=== PATIENT | male | born 1955 | race Caucasian/White ===

== ENCOUNTER 2019-10-23 10:23 | Inpatient (IN) | payer MEDICARE ==
[2019-10-23] VITALS (22 sets, daily range): BP systolic 90–161; BP diastolic 51–125
[~2019-10-23] VITALS: Ht 172.7 cm; Wt 94.3 kg
[~2019-10-23 10:23] MED LIST: AMARYL2 MG PO; ASPIRIN325 MG PO; ASPIRIN81 M1 PO; GLIMEPIRIDE1 MG PO; METFORMIN HCL1000 MG PO; METFORMIN HCL500 MG PO; METOPROLOL SR25 MG PO; PRAVASTATIN SOD40 MG PO
[2019-10-23 11:33] LABS: HEMATOCRIT 46.1 % (42.0-52.0); MEAN CELL VOLUME 89.9 fl (80.0-94.0); MEAN CORPUSCULAR HGB 28.5 pg (27.0-31.0); MEAN CORPUSCULAR HGB CONC 31.7 g/dl (33.0-37.0); MEAN PLATELET VOLUME 10.7 fl (9.6-12.3); PLATELET COUNT AUTOMATED 463 10*3/uL (130-400); RED BLOOD COUNT 5.13 10*6/uL (4.50-5.90); RED CELL DISTRI WIDTH 15.6 % (0-14.5)
--- NOTE | 2019-10-23 11:38 | NUR ---
A 64, admitted to , under the services of IRVIN Canela DO with a diagnosis of .+ COVID Chief complaint is SOB. Patient arrived via stretcher from ER. Monitor applied. Initial assessment completed. Vital signs taken and recorded. IRVIN CANELA DO notified of admission to the unit. Orders received. See assessment for past medical history, medications and allergies. Patient and/or family oriented to unit. [facility] visitation policy reviewed. Clothing/patient valuable form completed. RALEIGH WALTERS
[2019-10-23 11:41] LABS: ACT PARTIAL THROMBO TIME 25.7 SECONDS (20.0-32.1)
[2019-10-23 11:47] LABS: ALBUMIN 2.6 gm/dl (3.1-4.5); ALKALINE PHOSPHATASE 156 U/L (45-117); BUN 91 mg/dl (7-24); CHLORIDE 105 mmol/L (98-107); LIPASE 294 U/L (73-393); POTASSIUM 4.8 mmol/L (3.5-5.1); SGOT/AST 66 IU/L (3-35); SGPT/ALT 62 U/L (12-78); SODIUM 137 mmol/L (136-145); TOTAL PROTEIN 8.5 gm/dL (6.4-8.2)
--- NOTE | 2019-10-23 11:50 | NUR ---
PT BROUGHT TO 508 EMERGENTLY FROM ER, INTUBATED, UNABLE TO ASK ANY QUESTIONS RETO [facility]
[2019-10-23 11:55] LABS: TROPONIN I < 0.015 ng/ml (<0.045)
[2019-10-23 12:00] LABS: LDH 447 U/L (87-241)
[2019-10-23 12:04] LABS: PLATELET SUFFICIENCY HIGH (NORMAL); TOTAL CELLS COUNTED 100 #CELLS
--- NOTE | 2019-10-23 12:08 | NUR ---
PATIENT RECEIVED FROM ER AND ANRSTHESIA, NURSES & RESP THERAPY READY..PT AAOX3 AND AGREED TO INTUBATION AND LINES.. PER PT HE HAS BEEN SICK FOR AT LEAST 2 WEEKS..INTUBATED BY ANESTHESIOLOGY AFTER 10 ROCURIUM, 3 SYRINGES OF KETAMINE & 8cc SUCC VIA LEFT ANTECUBITAL WITH GOOD BLOOD RETURN..INTUBATED #8 @ 24 LIP WITHOUT DIFFICULTY..VENT CURRENTLY AT AC 24, TV 425, 100% & +16...#16 CONWAY PLACED WITHOUT DIFFICULTY BUT NO URINE OUTPUT OBTAINED.. TAPED TO THIGH..#18 OGT PLACED WITHOUT DIFFICULTY & PLACEMENT CHECKED WITH AIR BOLUS..90 ROCC GIVEN POST INTUBATION PER ANESTHESIA..DR MEDINA WAS AWARE OF PATIENT ARRIVAL TO FLOOR..
--- NOTE | 2019-10-23 12:36 | NUR ---
PATIENT BLOOD PRESSURE CRASHING - PER ANESTHESIA STAT IV NSS X2L / LADONNA, LEVOPHED, EPHEDRINE PULLED AND GIVEN TO ANESTHESIA...STAFF AT BEDSIDE
--- NOTE | 2019-10-23 13:00 | NUR ---
A ART LINE was inserted into right radial artery under sterile procedure by Kash Goznalez CRNA per policy. Education was completed by staff to include central line blood stream infection prevention. Julissa Abbott Rn
--- NOTE | 2019-10-23 13:30 | NUR ---
A MULTILUMEN CATHETER was inserted into RIJ under sterile procedure by Kash Gonzalez per policy. A stop sign was placed outside the door prior to the line insertion. Education was completed by staff to include central line blood stream infection prevention. Julissa Abbott Rn
[2019-10-23 14:59] LABS: ABG BASE EXCESS -11.9 mmol/L (-2.0-2.0); ARTERIAL BLOOD GAS PH 7.079 (7.35-7.45)
--- NOTE | 2019-10-23 15:20 | NUR ---
PT. hypotensive with BP84/59. PROPOFOL drip stopped. Dr Sim notified of condition changes. Orders rec'd. IV fluids given as ordered. Epinephrine gtt started along with vasopressin. PT continues to not response to vasopressors. [id number] Titrating drips to maintain map >70. Family notified of patient critical condition. Julissa Abbott Rn
--- NOTE | 2019-10-23 16:00 | NUR ---
VT CHANGED TO 550, FIO2 60%, PEEP +9, A/C [address] MEDINA.
--- NOTE | 2019-10-23 16:37 | NUR ---
DR. PEDERSEN'S AND DR. OLEA'S ANSWERING SERVICE NOTIFIED OF CONSULT
[2019-10-23 17:10] LABS: ABG BASE EXCESS -11.7 mmol/L (-2.0-2.0)
[2019-10-23 17:12] LABS: ARTERIAL BLOOD GAS PH 7.137 (7.35-7.45)
--- NOTE | 2019-10-23 17:15 | NUR ---
[phone] here with patient. Wallet and yellow wedding band given to . BP 107-122 systolic. Vasopressors remain on. Julissa AbbottRn
--- NOTE | 2019-10-23 17:30 | NUR ---
STAT 2 AMPS BICARB GIVEN AFTER SPEAKING WITH DR MEDINA ABOUT ABG RESULTS - AT BEDSIDE
[2019-10-23 17:32] LABS: ALBUMIN 2.2 gm/dl (3.1-4.5); CREATININE 3.24 mg/dL (0.70-1.30); PHOSPHOROUS 8.1 mg/dL (2.5-4.9)
[2019-10-23 17:33] LABS: ALBUMIN 2.2 gm/dl (3.1-4.5); CREATININE 3.16 mg/dL (0.70-1.30)
[2019-10-23 19:22] LABS: HEMATOCRIT 40.5 % (42.0-52.0); MEAN CORPUSCULAR HGB 27.7 pg (27.0-31.0); MEAN CORPUSCULAR HGB CONC 28.9 g/dl (33.0-37.0); MEAN PLATELET VOLUME 10.4 fl (9.6-12.3); NUCLEATED RED BLOOD CELL 0.1 10*3/uL (0.0-0.0); PLATELET COUNT AUTOMATED 499 10*3/uL (130-400); RED BLOOD COUNT 4.22 10*6/uL (4.50-5.90); RED CELL DISTRI WIDTH 16.4 % (0-14.5)
[2019-10-23 19:25] LABS: WHITE BLOOD COUNT 185.9 10*3/uL (4.8-10.8)
[2019-10-23 19:26] LABS: ABG BASE EXCESS -11.3 mmol/L (-2.0-2.0); ARTERIAL BLOOD GAS PH 7.11 (7.35-7.45)
--- NOTE | 2019-10-23 19:30 | NUR ---
DR GOMEZ CALLED WITH CRITICAL WBC
[2019-10-23 19:49] LABS: PLATELET SUFFICIENCY HIGH (NORMAL); TOTAL CELLS COUNTED 100 #CELLS
[2019-10-23 19:50] LABS: BURR CELLS MODERATE
[2019-10-23 19:51] LABS: ROULEAUX SLIGHT
--- NOTE | 2019-10-23 19:55 | NUR ---
DR GOMEZ CALLED WITH CRITICAL LACTIC ACID
--- NOTE | 2019-10-23 20:00 | NUR ---
RN IN TO SEE PATIENT, 1999 ASSESSMENT COMPLETED AT THIS TIME,SEE ASSESSMENT INTERVENTION. PATIENT HAS VASOPRESSIN, LEVOPHED, EPINEPHERINE, NOREPINPHERINE, AND BICARB DRIPS INFUSING PER DRS ORDERS. PATIENT SUCTIONED AND NO COUGH RESPONSE. PATIENT HAS NO REPONSE TO PAINFUL STIMULI, CURRENTLY ON NO SEDATION. BILATERAL WRIST RESTRAINTS ARE IN PLACE TO PREVENT SELF HARMA DN SELF EXTUBATION. DRY CHAIN PULLER IN VIEW OF THE MONITORING CAMERA. RN WILL CONTINUE TO MONITOR
--- NOTE | 2019-10-23 21:10 | NUR ---
RN IN ROOM WITH PATIENT, PATIENT CONTINUES TO DESATURATE, OXYGEN TURNED UP TO 80%, RESPIRATORY IN WITH TABLET, ON WITH SHAHANA NEWTON TITRATED TO MAINTAIN BLOOD PRESSURE AND MAP. ORDER TO PRONE PATIENT.
--- NOTE | 2019-10-23 21:40 | NUR ---
SPOKE WITH DR GOMEZ REGARDING CHANGE IN CONDITION, STATES TO HOLD OFF ON PRONING UNTIL PATIENT BLOOD PRESSURE HAS STABLIZED.
[2019-10-23 22:48] LABS: ALBUMIN 2.1 gm/dl (3.1-4.5); CREATININE 2.95 mg/dL (0.70-1.30); PHOSPHOROUS 5.8 mg/dL (2.5-4.9); POTASSIUM 5.5 mmol/L (3.5-5.1)
--- NOTE | 2019-10-23 22:52 | NUR ---
DR GOMEZ MADE AWARE OF ELEVATED GLUCOSE LEVEL
--- NOTE | 2019-10-23 23:30 | NUR ---
PATIENT GIVEN ZEMURON AT THIS TIME, TO AID IN PREVENTING PATIETN FROM BREATHING OVER THE VENTILATOR, PATIENT TO BE PUT IN THE PRONE POSITION SHORTLY
[2019-10-23 23:46] LABS: ABG BASE EXCESS -5.7 mmol/L (-2.0-2.0); ARTERIAL BLOOD GAS PH 7.221 (7.35-7.45)
[2019-10-24] VITALS (96 sets, daily range): BP systolic 86–1101; BP diastolic 56–89
--- NOTE | 2019-10-24 00:30 | NUR ---
PATIENT PRONED AT THIS TIME, TOLERATED WELL, RENITA KATHLEEN AT HEAD OF BED TO ASSIST. PATIENT HEARTRATE DOWN TO 120'S, PO2-98% RECTAL TYLENOL GIVEN FOR ELEVATED TEMP. INSULIN COVERAGE GIVEN PER DR ORDER FOR CRITICAL GLUCOSE LEVEL.
--- NOTE | 2019-10-24 03:00 | NUR ---
PATIENT TAKEN OFF EPINEPHRINE GTT AT THIS TIME. HEARTRATE REMAINS 120-130'S, SINUS TACH WITH OCCASIONAL PAC'S. BLOOD PRESSURE REMAINS STABLE, MAP REMAINS ABOVE 75. DIPROVAN HAS BEEN TITRATED UP PATIENT HAS BEGUN TO FUSS, AND BECOME RESTLESS SINCE PRONING
--- NOTE | 2019-10-24 03:18 | NUR ---
PATIENT GIVEN ZEMURON FOR AGITATION AND DYSSYNCHRONIZATION FROM THE VENTILATOR. RN WILL CONTINUE TO MONITOR
[2019-10-24 03:23] LABS: ABG BASE EXCESS -1.2 mmol/L (-2.0-2.0); ARTERIAL BLOOD GAS PH 7.33 (7.35-7.45)
--- NOTE | 2019-10-24 05:15 | NUR ---
AM LABS OBTAINED, PATIENT TAKEN OFF VASOPRESSIN AT THIS TIME. MAP REMAINS 75 OR ABOVE. REMAINS ON LEVOPHED AND BICARB GTT.
[2019-10-24 05:36] LABS: ALBUMIN 1.9 gm/dl (3.1-4.5); CREATININE 2.41 mg/dL (0.70-1.30); TOTAL PROTEIN 6.2 gm/dL (6.4-8.2)
[2019-10-24 05:38] LABS: POTASSIUM 4.5 mmol/L (3.5-5.1)
[2019-10-24 06:09] LABS: HEMATOCRIT 36.5 % (42.0-52.0); MEAN CELL VOLUME 93.6 fl (80.0-94.0); MEAN CORPUSCULAR HGB 28.5 pg (27.0-31.0); MEAN CORPUSCULAR HGB CONC 30.4 g/dl (33.0-37.0); MEAN PLATELET VOLUME 10.6 fl (9.6-12.3); PLATELET COUNT AUTOMATED 382 10*3/uL (130-400); RED CELL DISTRI WIDTH 15.5 % (0-14.5)
[2019-10-24 06:12] LABS: WHITE BLOOD COUNT 126.5 10*3/uL (4.8-10.8)
[2019-10-24 06:31] LABS: TOTAL CELLS COUNTED 100 #CELLS
[2019-10-24 06:32] LABS: BURR CELLS FEW; PLATELET SUFFICIENCY NORMAL (NORMAL); POLYCHROMASIA SLIGHT; ROULEAUX SLIGHT
--- NOTE | 2019-10-24 08:00 | NUR ---
THIS RN IN ROOM FOR MORNING ASSESSMENT. PT REMAINS ON LEVOPHED AND PROPOFOL TITRATE TO MAINTAIN MAP>80. SEE BP INTERVENTIONS. CONWAY PATENT FOR DENI URINE OGT PLACEMENT CHECK WITH AIR BOLUS, PLACEMENT CONFIRMED. NEPRO STARTED AT 20CC/HR. ARTERIAL LINE ZERO DONE. GOOD WAVE FORM NOTED. MONITOR ST 110-120. PT. REMAINS PRONED. PRESSURE INJURY PREVENTION FOLLOWED. HEAD REPOSITONED IN PRONING PILLOW. RECTAL TEMP INPLACE WITH RECTAL TEMP OF 99.3. LABS REVIEWED. DEBRA PEACOCKRN
[2019-10-24 08:03] LABS: HEP B CORE AB, IGM Negative (Negative); HEPATITIS B SURFACE AG Negative (Negative); HEPATITIS C AB <0.1 (0.0-0.9); HEPATITIS C VIRUS ANTIBODY <0.1 s/co (0.0-0.9)
[2019-10-24 09:55] LABS: ABG BASE EXCESS 3.7 mmol/L (-2.0-2.0); ARTERIAL BLOOD GAS PH 7.392 (7.35-7.45)
--- NOTE | 2019-10-24 11:30 | NUR ---
DR MEDINA HERE. PT CONDITONS AND LABS REVIEWED.\ ORDERS REC'D.\ DEBRA PEACOCK RN
--- NOTE | 2019-10-24 11:33 | NUR ---
BACK IN ROOM TO TALK WITH PT. ATTEMPTED TO TALK WITH PT ABOUT SNF BUT HE BECOMES UPSET AND STATES I AM GOING HOME AND NO WHERE ELSE. EXPLAINED THAT PT AND OT WERE ORDERED AND WE WILL SEE HOW HE DOES WITH THEM. WILL CONTINUE TO FOLLOW.
--- NOTE | 2019-10-24 12:22 | NUR ---
PT IS CURRENTLY ON VENT AT THIS TIME. WILL CONTINUE TO FOLLOW.
--- NOTE | 2019-10-24 12:59 | NUR ---
ZEMURON GIVEN IV ORDERED. DR MEDINA IN ROOM MAKING VENT CHANGES. DEBRA PEACOCK RN
[2019-10-24 14:54] LABS: ABG BASE EXCESS 6.4 mmol/L (-2.0-2.0); ARTERIAL BLOOD GAS PH 7.408 (7.35-7.45)
--- NOTE | 2019-10-24 14:59 | NUR ---
PT GIVEN ZEMURON ORDERED. DEBRA PEACOCKRN
--- NOTE | 2019-10-24 16:35 | NUR ---
PT TAKEN OUT OF PRONE POSTION PLACED ON BACK WITHOUT DIFFUCULTY UNDER ANESTHESIA LEAD. ENDOTUBE REMAINS 25CM AT LIP WITH OGT 50CM AT LIP. ORAL CARE DONE. NEPRO FEEDING RESTARTED AT 20CC/HR. DEBRA PEACOCK RN
--- NOTE | 2019-10-24 17:15 | NUR ---
CATHFLO TO MIDDLE PORT/RIJ. DEBRA PEACOCK RN
--- NOTE | 2019-10-24 18:00 | NUR ---
MIDDLE PORT ASPIRATED BLOOD THEN FLUSHED WITH NS WITHOUT DIFFUCULTY. DEBRA PEACOCK RN
--- NOTE | 2019-10-24 18:15 | NUR ---
LEVOPHED INCREASED TO 10MIC AFTER MAP <68. DIPROVAN REMAINS ON AT 20 MICS. NO DISTRESS. HOB 30%. FEEDING INFUSING. DEBRA PEACOCKRN
[2019-10-24 19:28] LABS: ABG BASE EXCESS 7.1 mmol/L (-2.0-2.0); ARTERIAL BLOOD GAS PH 7.445 (7.35-7.45)
[2019-10-24 23:20] LABS: ABG BASE EXCESS 7.2 mmol/L (-2.0-2.0); ARTERIAL BLOOD GAS PH 7.381 (7.35-7.45)
[2019-10-25] VITALS (73 sets, daily range): BP systolic 98–149; BP diastolic 57–95
--- NOTE | 2019-10-25 00:30 | NUR ---
PATIENT PRONED AT THIS TIME, TOLERATED WELL. OXYGEN SATURATION HAS IMPROVED ALMOST IMMEDIATELY. HEARTRATE HAS DECREASED INTO THE LOW 100'. PATIENT APPEARS MUCH MORE COMFORTABLE. RN WILL CONTINUE TO MONTIOR
--- NOTE | 2019-10-25 04:30 | NUR ---
DR GOMEZ CALLED REGARDING INSULIN DRIP AND PATIENTS BLOOD SUGARS. STATES TO DISCONTINUE THE GTT AT THIS TIME. AND NOT TO START OTHER FLUIDS DUE TO POSITIVE FLUID BALANCE.
[2019-10-25 05:10] LABS: ABG BASE EXCESS 8.2 mmol/L (-2.0-2.0); ARTERIAL BLOOD GAS PH 7.459 (7.35-7.45)
[2019-10-25 05:29] LABS: ALBUMIN 1.8 gm/dl (3.1-4.5); BILIRUBIN, DIRECT 0.5 mg/dL (0.0-0.2); CREATININE 1.65 mg/dL (0.70-1.30); PHOSPHOROUS 2.2 mg/dL (2.5-4.9); POTASSIUM 4.1 mmol/L (3.5-5.1)
[2019-10-25 05:54] LABS: HEMATOCRIT 33.4 % (42.0-52.0); MEAN CELL VOLUME 92.5 fl (80.0-94.0); MEAN CORPUSCULAR HGB 28.3 pg (27.0-31.0); MEAN CORPUSCULAR HGB CONC 30.5 g/dl (33.0-37.0); MEAN PLATELET VOLUME 10.7 fl (9.6-12.3); PLATELET COUNT AUTOMATED 369 10*3/uL (130-400); RED BLOOD COUNT 3.61 10*6/uL (4.50-5.90); RED CELL DISTRI WIDTH 15.1 % (0-14.5)
[2019-10-25 06:06] LABS: WHITE BLOOD COUNT 82.5 10*3/uL (4.8-10.8)
[2019-10-25 06:58] LABS: TOTAL CELLS COUNTED 100 #CELLS
[2019-10-25 06:59] LABS: PLATELET SUFFICIENCY NORMAL (NORMAL); ROULEAUX SLIGHT
[2019-10-25 07:00] LABS: BURR CELLS MODERATE
--- NOTE | 2019-10-25 08:00 | NUR ---
PT REMAINS IN PRONE POSITION. PRESSURE INJURY PRECAUTIONS MAINTAINED. HEAD ROTATION DONE WITH RESP TECH AND THIS RN. ENDOTUBE SECURE AT 25CM AT LIP. OGT PLACEMENT CHECKED WITH AIR BOLUS. TUBE FEEDING STOPPED. FEEDING OOZING FROM NARES AND MOUTH. ARTERIAL ZERO. GOOD WAVE FORM. RECTAL TEMP INPLACE. CONWAY PATENT FOR DENI URINE. LEVOPHED 4MIC AND DIPROVAN 35MIC INFUSING VIA RIJ. ABD SOFT AND NONDISTENDED. DEBRA PEACOCKRN
[2019-10-25 09:18] LABS: ABG BASE EXCESS 7.8 mmol/L (-2.0-2.0); ARTERIAL BLOOD GAS PH 7.479 (7.35-7.45)
--- NOTE | 2019-10-25 10:00 | NUR ---
DR MEDINA HERE AND REVIEW PT LABS, UPDATED CONDITION GIVEN. DEBRA PEACOCKRN
--- NOTE | 2019-10-25 12:00 | NUR ---
TALKED TO PATIENTS . UPDATED HER ON PATIENTS CONDITION. DEBRA PEACOCK RN
[2019-10-25 13:44] LABS: ARTERIAL BLOOD GAS PH 7.466 (7.35-7.45)
--- NOTE | 2019-10-25 15:30 | NUR ---
PLACED IN SUPINE WITH HOB UP. TOLERATED PRONE WELL. OBITAL EDEMA PRESENT. NO WOUNDS NOTED. DEBRA PEACOCK RN
--- NOTE | 2019-10-25 16:29 | NUR ---
AWARE OF TRANSPORT WELL ELECTRIC POWERLINE EXAMINER.
--- NOTE | 2019-10-25 17:40 | NUR ---
PATIENT BEING FLOWN VIA [employer] HEL[employer]TER.
--- NOTE | 2019-10-25 18:37 | NUR ---
PATIENT DSICHARGED TO [facility]. NURSE TO NURSE REPORT GIVEN TO [facility]uthie CATHERINE.
== END 2019-10-25 18:52 | disposition short-term general hospital (02) | DRG 871 ==
LOC: ED 10:23 → 5E 11:12 → EDHOLD 11:12 → 5E 11:15
PROVIDERS: Emergency Medicine; Internal Medicine Critical Care Medicine; Internal Medicine Nephrology; Student in an Organized Health Care Education/Training Program; ADMIT Internal Medicine
PROC: 03HY32Z Insertion of Monitoring Device into Upper Artery, Percutaneous Approach (ICD-10-PCS; principal; 2019-10-23)
PROC: 02HV33Z Insertion of Infusion Device into Superior Vena Cava, Percutaneous Approach (ICD-10-PCS; principal; 2019-10-23)
PROC: B548ZZA Ultrasonography of Superior Vena Cava, Guidance (ICD-10-PCS; principal; 2019-10-23)
PROC: 5A1945Z Respiratory Ventilation, 24-96 Consecutive Hours (ICD-10-PCS; principal; 2019-10-23)
PROC: 4A133J1 Monitoring of Arterial Pulse, Peripheral, Percutaneous Approach (ICD-10-PCS; principal; 2019-10-23)
PROC: 0BH18EZ Insertion of Endotracheal Airway into Trachea, Via Natural or Artificial Opening Endoscopic (ICD-10-PCS; principal; 2019-10-23)
PROC: 4A133B1 Monitoring of Arterial Pressure, Peripheral, Percutaneous Approach (ICD-10-PCS; principal; 2019-10-23)
DX: A41.89 Other specified sepsis (principal); U07.1 COVID-19; J96.01 Acute respiratory failure with hypoxia; E43 Unspecified severe protein-calorie malnutrition; J12.89 Other viral pneumonia; N17.0 Acute kidney failure with tubular necrosis; R65.21 Severe sepsis with septic shock; J96.02 Acute respiratory failure with hypercapnia; R57.1 Hypovolemic shock; K72.00 Acute and subacute hepatic failure without coma; C91.10 Chronic lymphocytic leukemia of B-cell type not having achieved remission; E87.3 Alkalosis; E87.0 Hyperosmolality and hypernatremia; E83.41 Hypermagnesemia; D47.3 Essential (hemorrhagic) thrombocythemia; E11.59 Type 2 diabetes mellitus with other circulatory complications; I25.10 Atherosclerotic heart disease of native coronary artery without angina pectoris; E78.5 Hyperlipidemia, unspecified; Z96.1 Presence of intraocular lens; E66.01 Morbid (severe) obesity due to excess calories; E11.65 Type 2 diabetes mellitus with hyperglycemia; I12.9 Hypertensive chronic kidney disease with stage 1 through stage 4 chronic kidney disease, or unspecified chronic kidney disease; N18.3 Chronic kidney disease, stage 3 (moderate); E11.22 Type 2 diabetes mellitus with diabetic chronic kidney disease; E87.5 Hyperkalemia; I25.2 Old myocardial infarction; Z68.31 Body mass index [BMI] 31.0-31.9, adult; Z79.82 Long term (current) use of aspirin; Z79.899 Other long term (current) drug therapy; Z98.49 Cataract extraction status, unspecified eye; Z79.84 Long term (current) use of oral hypoglycemic drugs; Z95.5 Presence of coronary angioplasty implant and graft

== ENCOUNTER → 2021-02-03 | Outpatient (CLI) | payer MEDICARE | END | disposition home or self-care (01) | LOC: RAD 15:08 | PROVIDERS: ATTEND Chiropractor | DX: M47.812 Spondylosis without myelopathy or radiculopathy, cervical region (principal); M48.02 Spinal stenosis, cervical region; M25.78 Osteophyte, vertebrae ==

== ENCOUNTER → 2024-10-05 | Outpatient (CLI) | payer MEDICARE ==
[~2024-10-05] MED LIST changes: +Lactated Ringer's Solution 0 ML IV ONE
[2024-10-05 09:25] LABS: HEMATOCRIT 47.5 % (42.0-52.0); MANUAL DIFF REFLEX YES; MEAN CELL VOLUME 93.3 fl (80.0-94.0); MEAN CORPUSCULAR HGB 29.1 pg (27.0-31.0); MEAN CORPUSCULAR HGB CONC 31.2 g/dl (33.0-37.0); PLATELET COUNT AUTOMATED 159 10*3/uL (130-400); RED BLOOD COUNT 5.09 10*6/uL (4.50-5.90); RED CELL DISTRI WIDTH 14.9 % (0-14.5)
[2024-10-05 09:29] LABS: WHITE BLOOD COUNT 129.9 10*3/uL (4.8-10.8)
[2024-10-05 10:00] LABS: POTASSIUM 4.3 mmol/L (3.4-5.1); TOTAL PROTEIN 7.3 gm/dL (6.0-8.0)
[2024-10-05 10:07] LABS: ATYPICAL LYMPHS 1 % (0-0); BASOPHILS 1 % (0-1); BURR CELLS FEW; POLYCHROMASIA SLIGHT; TOTAL CELLS COUNTED 100 #CELLS
[2024-10-05 10:08] LABS: PLATELET SUFFICIENCY NORMAL (NORMAL)
== END | disposition home or self-care (01) ==
LOC: LAB 08:52
PROVIDERS: ATTEND Internal Medicine Interventional Cardiology
DX: I25.119 Atherosclerotic heart disease of native coronary artery with unspecified angina pectoris (principal); E78.2 Mixed hyperlipidemia; Z98.61 Coronary angioplasty status

== ENCOUNTER → 2024-12-14 | Outpatient (CLI) | payer MEDICARE ==
[~2024-12-14] MED LIST changes: -Lactated Ringer's Solution 0 ML IV ONE
== END | disposition home or self-care (01) ==
LOC: US 03:56
PROVIDERS: ATTEND Internal Medicine Nephrology
DX: N18.32 Chronic kidney disease, stage 3b (principal)

== ENCOUNTER → 2025-03-15 | Outpatient (CLI) | payer MEDICARE | END | disposition home or self-care (01) | LOC: RAD 10:03 | PROVIDERS: ATTEND Nurse Practitioner Primary Care | DX: J40 Bronchitis, not specified as acute or chronic (principal) ==